=== PATIENT | male | born 1965 | race Caucasian/White ===

== ENCOUNTER 2018-08-09 15:32 | Inpatient (IN) | payer MEDICAID ==
[~2018-08-09] VITALS: Ht 175.3 cm; Wt 88.5 kg
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
[2018-08-09 16:00] LABS: BASOPHILS % (AUTO) 0.4 % (0.0-2.0); EOSINOPHILS % (AUTO) 0.1 % (0.0-6.0); HEMATOCRIT 43 % (39-51); LYMPHOCYTES # (AUTO) 0.5 /CMM (0.8-4.8); LYMPHOCYTES % (AUTO) 6.3 % (20.0-44.0); MEAN CORPUSCULAR HGB CONC 35 g/dl (31.0-36.0); MEAN CORPUSCULAR VOLUME 98 fL (80-96); MONOCYTES # (AUTO) 0.7 /CMM (0.1-1.30); MONOCYTES % (AUTO) 8.8 % (2.0-12.0); NEUTROPHILS % (AUTO) 84.4 % (43.0-81.0); PLATELET COUNT (AUTO) 242 /CMM (150-450); RED BLOOD CELL COUNT(AUTO) 4.37 MIL/uL (4.5-6.0); WHITE BLOOD COUNT (AUTO) 8.3 K/uL (4.3-11.0)
[2018-08-09 16:06] LABS: CALCIUM, SERUM 9.2 mg/dL (8.5-10.1); CARBON DIOXIDE 22 mmol/L (21-32); CHLORIDE 93 mmol/L (98-107); CREATININE 1.1 mg/dL (0.6-1.3); GLUCOSE 172 mg/dL (74-106); POTASSIUM 3.7 mmol/L (3.5-5.1); SODIUM SERUM 131 mmol/L (136-145); UREA NITROGEN, BLOOD 4 mg/dL (7-18)
[2018-08-09 16:19] LABS: ALANINE AMINOTRANSFERASE 144 U/L (12-78); ALKALINE PHOSPHATASE 90 U/L (46-116); ASPARTATE AMINOTRANSFERASE 126 U/L (15-37); B-TYPE NATRIURETIC PEPTIDE 292 PG/ML (0-125); BILIRUBIN,DIRECT 0.2 mg/dL (0.0-0.2); BILIRUBIN,TOTAL 1.2 mg/dL (0.2-1.0); TOTAL PROTEIN, SERUM 8.4 g/dL (6.4-8.2)
--- NOTE | 2018-08-09 17:00 | NUR ---
PATIENT IN BED, NAD, BP ELEVATED, MD AWARE. PATIENT ASYMPTOMATIC. NO DISTRESS NOTED. WILL MONITOR.
[2018-08-09 17:05] LABS: D-DIMER 2.02 mg/L(FEU (0.17-0.50)
[2018-08-09] MEDS ORDERED: LOSA50TA39 PO (17:54)
[2018-08-09] MEDS ORDERED: SERT25TA PO (17:54)
[2018-08-09] MEDS ORDERED: FOLI1TAB16 PO (17:54)
[2018-08-09] MEDS ORDERED: LORA0.5T PO (17:54)
[2018-08-09] MEDS ORDERED: AMLO5TAB9 PO (17:54)
[2018-08-09] MEDS ORDERED: CT SWABBABLE VALVE TRANS SET 1 EA INFUS.SET MC ONE (17:59)
[2018-08-09] MEDS ORDERED: IV NS 0.9% 250 ML IV ONE (17:59)
[2018-08-09] MEDS ORDERED: IOHEXOL-350 100 ML VIAL IV ONE (17:59)
--- NOTE | 2018-08-09 19:21 | NUR ---
REPORT GIVEN TO CAROLYN RODRIGUEZ FOR CLARK.
--- NOTE | 2018-08-09 19:23 | NUR ---
REC'D ENDORSEMENT FROM MICHAEL BANUELOS FOR CLARK
--- NOTE | 2018-08-09 19:45 | NUR ---
PT AWAKE IN BED. NO COMPLAINTS AT THIS TIME. WAITING FOR AUTHORIZATION. WILL CONT TO MONITOR.
--- NOTE | 2018-08-09 19:57 | NUR ---
Matthew schwab in [facility] - 08/09/18 at 2017 by ELIANA URINE SENT TO LAB
[2018-08-09] MEDS ORDERED: ASPIRIN 325 MG TABLET PO ONE (20:00)
[2018-08-09] MEDS ORDERED: NITROGLYCERIN PACKET 1 GM PACKET TOP ONE (20:00)
[2018-08-09] MEDS ORDERED: ASPIRIN 325 MG TABLET ONE (20:12)
[2018-08-09] MEDS ORDERED: NITROGLYCERIN PACKET 1 GM PACKET ONE (20:12)
--- NOTE | 2018-08-09 20:37 | NUR ---
PT ASSIGNED TO 312-2
--- NOTE | 2018-08-09 21:31 | NUR ---
REPORT GIVEN TO MICHAEL STEVENSON FOR 327-1 TELE
--- NOTE | 2018-08-09 21:58 | NUR ---
[facility]
[2018-08-09 22:00] VITALS: BP 161/108
[2018-08-09] MEDS ORDERED: MAG HYDROX/AL HYDROX/SIMETH 30 ML UDC PO PRN (22:00)
[2018-08-09] MEDS ORDERED: ACETAMINOPHEN 325 MG TABLET PO PRN (22:00)
[2018-08-09] MEDS ORDERED: LORAZEPAM 0.5 MG TABLET PO PRN (22:00)
[2018-08-09] MEDS ORDERED: MAGNESIUM HYDROXIDE 30 ML UDC PO PRN (22:00)
[2018-08-09] MEDS ORDERED: ONDANSETRON HCL/PF 4 MG/2 ML VIAL IVP PRN (22:00)
[2018-08-09] MEDS ORDERED: ZOLPIDEM TARTRATE 5 MG TABLET PO PRN (22:00)
[2018-08-09] MEDS ORDERED: Z GUARD REMEDY 2 OZ OINT TP PRN (22:00)
--- NOTE | 2018-08-09 22:01 | NUR ---
RN ADMITTING NOTES RECEIVED REPORT FROM CHILDREN'S MINISTRY DIRECTOR SUNG. Pt ARRIVED TO THE FLOOR VIA GURNEY. WAS TOO WEAK TO WALK TO BED, STAFF ASSISTED Pt FROM GURNEY TO ROOM BED. ON TELE MONITOR. TELE READING SR 88. 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 IV ACCESS ON RAC #18G, SL. SAFETY MEASURES IN PLACE. BED LOW, LOCKED, HOB ELEVATED, SIDE RAILS UP, CALL LIGHT AND BEDSIDE TABLE WITHIN REACH. WILL CONTINUE TO MONITOR Pt's CONDITION AND SAFETY THROUGHOUT THE NIGHT.
[2018-08-10] VITALS: BP 125/69
[2018-08-10] MEDS: HYDROCODONE/APAP 5/325MG 1 EACH TABLET PO PRN ×2 (00:13→16:47)
[2018-08-10] MEDS: hydrALAZINE HCL IV 20 MG VIAL IV PRN (00:26)
[2018-08-10 04:00] VITALS: BP 134/84
[2018-08-10 06:40] LABS: BASOPHILS % (AUTO) 0.2 % (0.0-2.0); EOSINOPHILS % (AUTO) 0.5 % (0.0-6.0); HEMATOCRIT 41 % (39-51); HEMOGLOBIN 14.4 g/dL (13.5-17.5); LYMPHOCYTES # (AUTO) 0.8 /CMM (0.8-4.8); LYMPHOCYTES % (AUTO) 10.3 % (20.0-44.0); MEAN CORPUSCULAR HGB CONC 35 g/dl (31.0-36.0); MEAN CORPUSCULAR VOLUME 96 fL (80-96); MONOCYTES # (AUTO) 0.8 /CMM (0.1-1.30); MONOCYTES % (AUTO) 10.6 % (2.0-12.0); NEUTROPHILS # (AUTO) 6.1 /CMM (1.8-8.9); NEUTROPHILS % (AUTO) 78.4 % (43.0-81.0); PLATELET COUNT (AUTO) 193 /CMM (150-450); RED BLOOD CELL COUNT(AUTO) 4.25 MIL/uL (4.5-6.0); WHITE BLOOD COUNT (AUTO) 7.8 K/uL (4.3-11.0)
--- NOTE | 2018-08-10 06:45 | NUR ---
RN CLOSING NOTES NO SIGNIFICANT CHANGES IN Pt's CONDITION. Pt REMAINS STABLE AT THIS TIME. NO S/S OF ACUTE DISTRESS OR SOB NOTED DURING THE NIGHT. TELE READING SR 90. ALL NEEDS MET AND ATTENDED TO. SAFETY MEASURES IN PLACE. BED LOW, LOCKED, HOB ELEVATED, SIDE RAILS UP, CALL LIGHT AND BEDSIDE TABLE WITHIN REACH. WILL ENDORSE TO DAYSHIFT RN FOR Pt's CLARK.
[2018-08-10 07:03] LABS: THYROID STIMULATING HORMONE 3.186 uIU/mL (0.358-3.74)
[2018-08-10 07:05] LABS: ALBUMIN 3.4 g/dL (3.4-5.0); BILIRUBIN,TOTAL 1.4 mg/dL (0.2-1.0); CALCIUM, SERUM 8.8 mg/dL (8.5-10.1); CREATININE 0.6 mg/dL (0.6-1.3); MAGNESIUM 2.1 mg/dL (1.8-2.4); PHOSPHORUS 3.5 mg/dL (2.5-4.9); POTASSIUM 2.9 mmol/L (3.5-5.1); TOTAL PROTEIN, SERUM 7.3 g/dL (6.4-8.2)
[2018-08-10] MEDS: PANTOPRAZOLE 40 MG TABLET.DR PO SCH (07:30)
[2018-08-10 07:41] LABS: APPEARANCE,URINE CLEAR (CLEAR); BILIRUBIN,URINE NEGATIVE (NEGATIVE); BLOOD, URINE NEGATIVE Ery/uL (NEGATIVE); COLOR,URINE DARK YELLO (YELLOW); KETONES,URINE 1+ (NEGATIVE); LEUKOCYTE ESTERASE ,URINE NEGATIVE (NEGATIVE); NITRITE, URINE NEGATIVE (NEGATIVE); PROTEIN,URINE NEGATIVE (NEGATIVE); UGLUCOSE NEGATIVE (NEGATIVE); UROBILINOGEN,URINE >=8.0 EU/dL (0.2)
--- NOTE | 2018-08-10 07:59 | NUR ---
TELE/RN OPENING NOTE PATIENT IN BED IN STABLE CONDITION. A/O X 2-3 WITH EPISODES OF FORGETFULNESS. NO SIGNS OF ACUTE DISTRESS. NO COMPLAIN OF PAIN OR DISCOMFORT. ON TELE MONITOR NOTED WITH SR IN 90'S. NOTED WITH SWOLLEN TONGUE AT THIS TIME AND PATIENT COMPLAIN OF DIFFICULTY TALKING SECONDARY TO SWOLLEN TONGUE. PER PATIENT, BEFORE COMING TO ER PATIENT WAS HAVING SEIZURES AND HE BIT HIS TONGUE. AT THIS TIME KEPT PATIENT NPO TFO. DR. VENTURA NOTIFIED. CALL LIGHT WITHIN REACH. WILL CONTINUE TO MONITOR TO ENSURE SAFETY.
[2018-08-10 08:00] VITALS: BP 146/94
[2018-08-10] MEDS ORDERED: diphenhydrAMINE HCL 50 MG CAPSULE PO PRN (08:30)
[2018-08-10] MEDS: methylPREDNISolone SOD SUCC 125 MG/2ML VIAL IV SCH ×3 (08:49→16:47)
[2018-08-10] MEDS ORDERED: AMLODIPINE BESYLATE 5 MG TABLET PO SCH (09:00)
[2018-08-10] MEDS: AMLODIPINE BESYLATE 10 MG TABLET PO SCH (09:00)
[2018-08-10] MEDS ORDERED: LOSARTAN POTASSIUM 50 MG TABLET PO SCH (09:00)
[2018-08-10] MEDS: ASPIRIN EC 81 MG TABLET.DR PO SCH (09:00)
[2018-08-10] MEDS ORDERED: FOLIC ACID 1 MG TABLET PO SCH (09:00)
[2018-08-10] MEDS: SERTRALINE HCL 25 MG TABLET PO SCH (09:00)
[2018-08-10] MEDS: METOPROLOL TARTRATE 25 MG TABLET PO SCH ×2 (09:00→21:33)
[2018-08-10] MEDS: POTASSIUM CHLORIDE 20 MEQ TAB.PRT.SR PO SCH ×2 (09:00→10:00)
--- NOTE | 2018-08-10 09:00 | NUR ---
MS/RN ALL 9AM PO MEDS AND BREAKFAST HELD SECONDARY TO PATIENT HAVING POSSIBLE ALLERGIC REACTION. PATIENT TONGUE NOTED SWOLLEN AND PER PATIENT HAVING DIFFICULTY SWALLOWING AT THIS TIME. DR VENTURA NOTIFIED WITH ORDERS TO GIVE SOLUMEDROL IVP AND BENADRYL IVP. DENIES OF ANY SOB AT THIS TIME. WILL CONTINUE TO MONITOR TO ENSURE SAFETY.
[2018-08-10] MEDS: Magnesium 1GM/D5W 100ML PREMIX 100 ML IV SCH ×2 (09:01→10:17)
[2018-08-10] MEDS: diphenhydrAMINE HCL 50 MG/ML VIAL IV PRN (09:01)
[2018-08-10 10:11] LABS: BACTERIA,URINE None seen /HPF (None Seen); RBC,URINE NONE SEEN /HPF (0-2); SQUAMOUS EPITHELIAL CELL,UR Rare /HPF (None Seen); WBC,URINE 0-2 /HPF (0-3)
[2018-08-10] MEDS: POTASSIUM CL. PREMIX PERIPHER. 50 ML IV SCH ×5 (11:37→15:49)
--- NOTE | 2018-08-10 11:45 | NUR ---
MS/RN PATIENT'S TONGUE SWELLING NOTED TO BE REDUCED AND PER PATIENT HE IS ABLE TO SWALLOW BETTER, PREFERABLY COLD FLUIDS. YARA BEAL NOTIFIED.
[2018-08-10] MEDS ORDERED: Thiamine 100 MG in IV D5W 50 ML IV SCH (12:00)
[2018-08-10] MEDS ORDERED: Folic acid 1 MG in IV D5W 50 ML IV SCH (12:00)
[2018-08-10] MEDS: LORAZEPAM INJ 2 MG/ML VIAL IV PRN ×2 (12:41→21:42)
[2018-08-10 16:00] VITALS: BP 155/110
--- NOTE | 2018-08-10 18:09 | NUR ---
MS/RN CLOSING NOTE PATIENT IN BED IN STABLE CONDITION. A/O X 3. NO SIGNS OF ACUTE DISTRESS. NO COMPLAIN OF PAIN OR DISCOMFORT. ALL NEEDS ATTENDED TO. CALL LIGHT WITHIN REACH. WILL ENDORSE TO NEXT SHIFT FOR CONTINUITY OF CARE.
--- NOTE | 2018-08-10 19:47 | NUR ---
OPENING NOTES: RANIVE ABOUT HIMSELF SMILING TALKING ABOUT HIS STONER AND HEALTH. PLEASENT AND SMILING CALL LIGHT WITHIN HIS REACH PADDED SIDE RAILS SPEECH UNDERSTANDABLE
[2018-08-10 20:00] VITALS: BP 157/96
[2018-08-10] MEDS: ATORVASTATIN 10 MG TABLET PO SCH (21:34)
--- NOTE | 2018-08-11 05:21 | NUR ---
ENDING NOTES: UP AND ABOUT USING A WALKERS. STEADY ON HIS LEGS ALERT AND ORIENTATED. ENJOYS CONVERSATION. SPEECH UNDERSTANDABLE. NOTED TONGUE MAROON IN COLOR AND SWOLLEN. HE HAS NO PROBLEM SWALLOWING OR BREATHING . AUDIBLE SNORING NOTED WHEN ASLEEP. SATS ABOVE 92%. ATIVAN X1 GIVEN AND EFFECTIVE FOR HIS ANXIETY. VERBALIZES HIS NEEDS.
[2018-08-11] MEDS: LORAZEPAM INJ 2 MG/ML VIAL IV PRN ×2 (06:29→16:48)
[2018-08-11 07:05] LABS: CALCIUM, SERUM 8.8 mg/dL (8.5-10.1); CREATININE 0.6 mg/dL (0.6-1.3); MAGNESIUM 2.2 mg/dL (1.8-2.4); PHOSPHORUS 3.4 mg/dL (2.5-4.9); POTASSIUM 4.1 mmol/L (3.5-5.1)
--- NOTE | 2018-08-11 07:14 | NUR ---
TRANSFER OF CARE RECEIVED PT VIA W/C TRANSFER TO 209-1 ALL BELONGINGS WITH PT, STABLE KEPT COMFORTABLE ENDORSE TO AM NURSE POC
[2018-08-11] MEDS: PANTOPRAZOLE 40 MG TABLET.DR PO SCH (07:30)
--- NOTE | 2018-08-11 07:40 | NUR ---
RN OPENING NOTE PT WAS RECEIVED IN BED AT LOWEST AND LOCKED POSITION WITH SIDE RAILS UP X2, A/O X3 BREATHING EVEN AND UNLABORED ON RA, NO S/S OF ANY DISTRESS OR PAIN AT THIS TIME, IV IS PATENT AND INTACT, SAFETY PRECAUTIONS IN PLACE, CALL LIGHT WITHIN REACH, WILL MONITOR PT ACCORDINGLY
[2018-08-11 08:00] VITALS: BP 147/94
[2018-08-11] MEDS: methylPREDNISolone SOD SUCC 125 MG/2ML VIAL IV SCH ×3 (08:00→16:00)
[2018-08-11] MEDS: diphenhydrAMINE HCL 50 MG/ML VIAL IV PRN ×3 (08:01→21:02)
[2018-08-11] MEDS: THIAMINE HCL 100 MG TABLET PO SCH (09:00)
[2018-08-11] MEDS: METOPROLOL TARTRATE 25 MG TABLET PO SCH ×2 (09:00→21:01)
[2018-08-11] MEDS: FOLIC ACID 1 MG TABLET PO SCH (09:00)
[2018-08-11] MEDS: SERTRALINE HCL 25 MG TABLET PO SCH (09:00)
[2018-08-11] MEDS: AMLODIPINE BESYLATE 10 MG TABLET PO SCH (09:00)
[2018-08-11] MEDS: ASPIRIN EC 81 MG TABLET.DR PO SCH (09:00)
--- NOTE | 2018-08-11 09:00 | NUR ---
RN NOTE AM PO MEDS HELD DUE TO PATIENT HAVING SWOLLEN TONGUE, EMIGDIO QC SCIENTIST NOTIFIED AND MADE AWARE, IV BENADRYL AND IV SOLUMEDROL GIVEN. WILL MONITOR ACCORDINGLY.
--- NOTE | 2018-08-11 09:18 | NUR ---
RN NOTE EMIGDIO LIVINGSTON MADE AWARE OF PT NOT BEING ABLE TO TAKE PO PAIN MEDICATION, REQUESTED IV PAIN MEDICATION AND IV MORPHINE 2 MG Q6H PRN ORDERED, WILL IMPLEMENT AND CARRY OUT.
[2018-08-11] MEDS: MORPHINE SULFATE INJ 2 MG/ML DISP.SYRIN IV PRN ×2 (09:23→15:56)
[2018-08-11 16:00] VITALS: BP 161/105
[2018-08-11] MEDS: FAMOTIDINE/PF INJ 20 MG/2 ML VIAL IV SCH (16:48)
[2018-08-11] MEDS: hydrALAZINE HCL IV 20 MG VIAL IV PRN (16:48)
--- NOTE | 2018-08-11 18:11 | NUR ---
RN CLOSING NOTE PT IN BED AT LOWEST AND LOCKED POSITION WITH SIDE RAILS UP X2, A/O X3 BREATHING EVEN AND UNLABORED ON RA, NO S/S OF ANY DISTRESS OR PAIN AT THIS TIME, IV IS PATENT AND INTACT, TONGUE NOTED TO BE SWOLLEN STILL WITH HOSPITALIST AWARE, SAFETY PRECAUTIONS IN PLACE, CALL LIGHT WITHIN REACH, ALL NEEDS ATTENDED TO, WILL ENDORSE TO BEEF CATTLE SPECIALIST RN FOR CLARK.
[2018-08-11 18:38] LABS: BASOPHILS % (AUTO) 0.1 % (0.0-2.0); EOSINOPHILS % (AUTO) 0.2 % (0.0-6.0); HEMATOCRIT 41 % (39-51); HEMOGLOBIN 14.4 g/dL (13.5-17.5); LYMPHOCYTES # (AUTO) 0.2 /CMM (0.8-4.8); LYMPHOCYTES % (AUTO) 1.8 % (20.0-44.0); MEAN CORPUSCULAR HGB CONC 35 g/dl (31.0-36.0); MEAN CORPUSCULAR VOLUME 97 fL (80-96); MONOCYTES # (AUTO) 0.1 /CMM (0.1-1.30); MONOCYTES % (AUTO) 1.3 % (2.0-12.0); NEUTROPHILS # (AUTO) 9.2 /CMM (1.8-8.9); NEUTROPHILS % (AUTO) 96.6 % (43.0-81.0); PLATELET COUNT (AUTO) 188 /CMM (150-450); RED BLOOD CELL COUNT(AUTO) 4.29 MIL/uL (4.5-6.0); WHITE BLOOD COUNT (AUTO) 9.5 K/uL (4.3-11.0)
--- NOTE | 2018-08-11 19:10 | NUR ---
MS RN OPENING NOTES Received patient A/O x3, awake on semi-Pacheco's on bed. With patent peripheral IV line RFA G#18, no s/sx of infiltration noted. With tongue swollen, purple in color with whitish spots under the tongue noted. On RA, no SOB/respiratory distress noted. No complaints/discomfort at this time. Kept bed low and locked, siderail up, call light within easy reach. Will continue to monitor accordingly.
[2018-08-11 19:53] VITALS: BP 148/101
[2018-08-11 20:00] VITALS: BP 148/101
[2018-08-11] MEDS: ATORVASTATIN 10 MG TABLET PO SCH (21:02)
[2018-08-12] VITALS (7 sets, daily range): BP systolic 147–165; BP diastolic 83–99
[2018-08-12] MEDS: diphenhydrAMINE HCL 50 MG/ML VIAL IV PRN ×2 (04:30→20:33)
[2018-08-12] MEDS: LORAZEPAM INJ 2 MG/ML VIAL IV PRN ×3 (04:30→19:49)
[2018-08-12 06:23] LABS: BASOPHILS % (AUTO) 0.2 % (0.0-2.0); HEMATOCRIT 41 % (39-51); HEMOGLOBIN 14.3 g/dL (13.5-17.5); LYMPHOCYTES # (AUTO) 0.8 /CMM (0.8-4.8); LYMPHOCYTES % (AUTO) 9.1 % (20.0-44.0); MEAN CORPUSCULAR HGB CONC 35 g/dl (31.0-36.0); MEAN CORPUSCULAR VOLUME 97 fL (80-96); MONOCYTES % (AUTO) 11.2 % (2.0-12.0); NEUTROPHILS % (AUTO) 79.5 % (43.0-81.0); PLATELET COUNT (AUTO) 193 /CMM (150-450); RED BLOOD CELL COUNT(AUTO) 4.24 MIL/uL (4.5-6.0); WHITE BLOOD COUNT (AUTO) 8.8 K/uL (4.3-11.0)
[2018-08-12 06:40] LABS: CREATININE 0.7 mg/dL (0.6-1.3); MAGNESIUM 2.2 mg/dL (1.8-2.4); PHOSPHORUS 3.4 mg/dL (2.5-4.9); POTASSIUM 3.4 mmol/L (3.5-5.1)
--- NOTE | 2018-08-12 06:47 | NUR ---
MS RN CLOSING NOTES Patient asleep at this time, on RA, no SOB/respiratory distress noted. With patent peripheral IV line LFA G#18, no s/sx of infiltration noted. All nursing needs attended. Due meds given as ordered. Afebrile the whole shift, no episode of chest pain or seizures noted. On fall precautions. Call light within easy reach. Endorsed to the next shift.
--- NOTE | 2018-08-12 07:45 | NUR ---
MS/RN Patient received Patient received from plant operator/shift supervisor, sleeping soundly at this time. Safety measures in place, will continue to monitor and ensure safety.
[2018-08-12] MEDS: methylPREDNISolone SOD SUCC 125 MG/2ML VIAL IV SCH ×3 (08:07→16:21)
[2018-08-12] MEDS: PANTOPRAZOLE 40 MG TABLET.DR PO SCH (08:08)
[2018-08-12] MEDS: SERTRALINE HCL 25 MG TABLET PO SCH (08:08)
[2018-08-12] MEDS: THIAMINE HCL 100 MG TABLET PO SCH (08:08)
[2018-08-12] MEDS: METOPROLOL TARTRATE 25 MG TABLET PO SCH ×2 (08:08→20:29)
[2018-08-12] MEDS: FAMOTIDINE/PF INJ 20 MG/2 ML VIAL IV SCH ×2 (08:08→20:01)
[2018-08-12] MEDS: FOLIC ACID 1 MG TABLET PO SCH (08:08)
[2018-08-12] MEDS: ASPIRIN EC 81 MG TABLET.DR PO SCH (08:08)
[2018-08-12] MEDS: AMLODIPINE BESYLATE 10 MG TABLET PO SCH (08:08)
--- NOTE | 2018-08-12 09:15 | NUR ---
MS/RN Medications Patient able to swallow oral medications.
[2018-08-12] MEDS ORDERED: POTASSIUM CHLORIDE 20 MEQ TAB.PRT.SR PO SCH (09:30)
--- NOTE | 2018-08-12 10:15 | NUR ---
MS/RN S/B Speech therapist Seen by speech therapist - diet to be advanced to puree diet.
[2018-08-12] MEDS: MORPHINE SULFATE INJ 2 MG/ML DISP.SYRIN IV PRN ×2 (11:08→20:01)
--- NOTE | 2018-08-12 11:15 | NUR ---
MS/RN Pain Complaining of pain and feeling anxious, requesting something to "calm me down and take away the pain". Stated that pain is 8/10 and located to soles of both feet and to his neck due to the edema from the allergic reaction from previous medication. Ativan and morphine administered as ordered, will monitor effectiveness.
--- NOTE | 2018-08-12 11:29 | NUR ---
Social service consult requested by YARA Yang for homelessness. Pt. is a 53 year old male who was admitted to [facility] for altered mental status. HEBER met with pt. bedside. Pt. is alert and oriented x 4. Pt. is pleasant and cooperative with SW during the assessment. Pt. states he is currently homeless and has been living in his car since 03/11/18. Prior to being homeless, pt. was living in a house. Pt's emergency contact is his brother Jai Rendon and his son Javon . Pt. is currently linked to the ACCESS program at [facility]. Per pt's permission, SW contacted [facility] and spoke with caser up Any who confirmed with SW that pt. is linked to their ACCESS program and [place]. [place] [facility] [place]. SW offered pt. fdc placement, however pt. declined stating he will go back to [facility]. Pt. has a history of Depression and Anxiety and takes Ativan and Zoloft medication daily. Pt. denies any suicidal and homicidal ideations and visual/auditory hallucinations at this time. HEBER. informed pt. about [facility] [facility] since pt. lives in his car. Pt. states he is familiar with it. HEBER informed pt. she can initiate a referral packet to the [facility] [facility] program. Pt. agreed. HEBER contacted [employer] and spoke with Avinash and initiated the referral application. Avinash informed SW he will contact the pt. regarding his vehicle information etc. HEBER updated the pt. with the aforementioned information. SW to offer pt. homeless resources prior to discharge. Homeless patient waiver form to be signed by the pt. upon discharge.
[2018-08-12] MEDS: hydrALAZINE HCL IV 20 MG VIAL IV PRN (16:21)
--- NOTE | 2018-08-12 16:30 | NUR ---
MS/RN Hypertension Hypertensive at 160/ 94, hydralazine 10mg administered as ordered, will monitor patient and recheck blood pressure.
--- NOTE | 2018-08-12 18:26 | NUR ---
MS/RN End note Patient remains in stable condition, no further edema noted, continues to complain of difficulty in swallowing, but denies any shortness of breath, saturation on room air 98%. Blood pressure recheck at 1800, now 147/83. All needs addressed, will endorse to steam plant operator.
--- NOTE | 2018-08-12 19:20 | NUR ---
MS RN OPENING NOTES: RECEIVED PT ON ROOM AIR AND IS TOLERATING WELL. PT VERBALIZING THAT HIS TONGUE HAS BEEN SWOLLEN SINCE LAST NIGHT. NOTED WHITE SPOTS UNDER TONGUE AND TONGUE APPEARS TO BE PURPLE. NO SOB NOTED. NO S/S OF DISTRESS. PT ABLE TO MAKE NEEDS KNOWN. ASSESSED FOR SWALLOWING AND NO COUGHING OR DROOLING NOTED. PT HAS IV ON L FOREARM #18G AND IS PATENT AND INTACT. CURRENTLY H/L. BED KEPT IN LOW, LOCKED POSITION, AND SIDE RAILS X 2UP. WILL CONTINUE TO MONITOR PT.
--- NOTE | 2018-08-12 20:15 | NUR ---
MS RN NOTES: PT FEELING VERY ANXIOUS AND IS IN 8/10 THROAT, ANKLES, AND FEET PAIN. PT WAS ADMINISTERED ATIVAN AND MORPHINE IV. WILL CONTINUE TO MONITOR.
[2018-08-12] MEDS: ATORVASTATIN 10 MG TABLET PO SCH (21:04)
[2018-08-13 05:40] VITALS: BP 161/97
[2018-08-13] MEDS: MORPHINE SULFATE INJ 2 MG/ML DISP.SYRIN IV PRN (05:43)
--- NOTE | 2018-08-13 05:45 | NUR ---
MS RN NOTES: PT WOKE UP SAYING HIS THROAT STILL FEELS SWOLLEN AND HIS BILATERAL FEET ARE ACHY 8/10 PAIN. PT WAS ADMINISTERED MORPHINE 2MG IV. WILL CONTINUE TO MONITOR.
[2018-08-13 06:19] VITALS: BP 110/66
[2018-08-13] MEDS: LORAZEPAM INJ 2 MG/ML VIAL IV PRN (06:22)
--- NOTE | 2018-08-13 06:28 | NUR ---
MS RN NOTES: PT WAKING UP AND SAYING HE IS FEELING VERY ANXIOUS. PT WAS ADMINISTERED ATIVAN 2MG IV. WILL CONTINUE TO MONITOR.
[2018-08-13 06:29] LABS: CALCIUM, SERUM 8.9 mg/dL (8.5-10.1); CREATININE 0.6 mg/dL (0.6-1.3); POTASSIUM 3.3 mmol/L (3.5-5.1)
--- NOTE | 2018-08-13 06:50 | NUR ---
MS RN CLOSING NOTES: ALL NEEDS WERE ATTENDED AND ANTICIPATED FOR. PT KEPT DRY AND COMFORTABLE. PT ON ROOM AIR AND TOLERATING WELL. NO SOB NOTED. NO S/S OF DISTRESS. PT HAS IV AND REMAINS INTACT. PT'S TONGUE SWELLING APPEARS TO GO DOWN. BED KEPT IN LOW, LOCKED POSITION, AND SIDE RAILS X 2UP. WILL ENDORSE TO AM NURSE FOR CLARK.
--- NOTE | 2018-08-13 07:30 | NUR ---
MS/RN Patient received Patient received from research engineer marine equipment. No shortness of breath or difficulty breathing, saturation on room air 98%. Tongue appears less swollen that yesterday evening. Safety measures in place, aware of how to use call light and request assistance. Will continue to monitor and ensure safety.
[2018-08-13 08:00] VITALS: BP_SYST 109; BP_SYST 122; BP_DIAS 68; BP_DIAS 73
[2018-08-13] MEDS: FAMOTIDINE/PF INJ 20 MG/2 ML VIAL IV SCH (08:06)
[2018-08-13] MEDS: PANTOPRAZOLE 40 MG TABLET.DR PO SCH (08:06)
[2018-08-13] MEDS: ASPIRIN EC 81 MG TABLET.DR PO SCH (08:06)
[2018-08-13] MEDS: FOLIC ACID 1 MG TABLET PO SCH (08:06)
[2018-08-13] MEDS: SERTRALINE HCL 25 MG TABLET PO SCH (08:06)
[2018-08-13] MEDS: THIAMINE HCL 100 MG TABLET PO SCH (08:06)
[2018-08-13] MEDS: methylPREDNISolone SOD SUCC 125 MG/2ML VIAL IV SCH ×2 (08:06→13:20)
[2018-08-13 08:07] VITALS: BP 165/96
[2018-08-13] MEDS: METOPROLOL TARTRATE 25 MG TABLET PO SCH (08:07)
[2018-08-13] MEDS: AMLODIPINE BESYLATE 10 MG TABLET PO SCH (08:07)
--- NOTE | 2018-08-13 08:19 | NUR ---
MS/RN Medications Morning medications administered, no difficulty swallowing pills.
[2018-08-13] MEDS ORDERED: POTASSIUM CHLORIDE 20 MEQ TAB.PRT.SR PO SCH (10:30)
--- NOTE | 2018-08-13 11:30 | NUR ---
MS/RN S/B Dr Vogel Seen by Dr Vogel - patient to be discharged to home today.
[2018-08-13] MEDS ORDERED: Thiamine HCL PO (12:55)
[2018-08-13] MEDS ORDERED: FOLI1TAB16 PO (12:55)
--- NOTE | 2018-08-13 14:57 | NUR ---
SW received a call from pt's MICHAEL Pedraza informing SW that pt. will be discharging today. HEBER and MICHAEL Pedraza met with pt. bedside. Pt. declined senior living placement and wants to meat pickler his car from [facility] located at [address] [facility] [place] [address]. Pt. was given the following resources: [facility] located at [address] [facility], [place] ; [facility] [place], [address] [place] [address], [place] ; [employer] [employer] [facility] [place], [address] [facility] [facility] ; [facility] Homeless Resource Directory which includes food stamps, transitional housing, showers and hot meals etc; Mental Health clinics such as [facility] ; [facility] ; Health clinics;[facility] and Alcohol treatment centers such as [facility], ; [facility] Substance Abuse Hotline and [facility] . Patient was provided with a TAP card. Homeless patient Waiver Form was signed by the pt. and placed in pt's chart. No other social service needs are requested at this time. SW is available, if needed.
--- NOTE | 2018-08-13 15:23 | NUR ---
MS/crib clerk Patient discharged from hospital in stable condition. TAP card provided to enable patient to get to the location of his car in the parking lot of [facility] on [address]. Stated that he was going to go to his car and then drive himself to [facility] where he has previously helped to find placement/short term housing. Name bands removed along with heplock. Pressure dresser applied, catheter tip intact. Patient seen by transition social worker prior to discharge and provided with resources and longterm locations. Educated about the importance of calling 911 and returning to the emergency room if noticing that tongue has become more swollen or experiencing shortness of breath and difficulty breathing. Stated understanding of the above. Stated that he would also follow up with his primary care doctor. All paperwork signed, copies made and provided to patient. Homeless waiver signed and placed in front of chart. Escorted to main lobby by MALICK.
== END 2018-08-13 15:15 | disposition home or self-care (01) | DRG 53 ==
LOC: ER 15:34 → TELE 21:28 → MED 08-10 09:25 → MEDSG2 08-11 06:50
PROVIDERS: ADMIT Hospitalist
DX: G40.89 Other seizures (principal); G92 Toxic encephalopathy; I11.0 Hypertensive heart disease with heart failure; E87.1 Hypo-osmolality and hyponatremia; I50.32 Chronic diastolic (congestive) heart failure; F10.239 Alcohol dependence with withdrawal, unspecified; I16.0 Hypertensive urgency; E66.9 Obesity, unspecified; E87.6 Hypokalemia; F12.90 Cannabis use, unspecified, uncomplicated; F41.9 Anxiety disorder, unspecified; R74.0 Nonspecific elevation of levels of transaminase and lactic acid dehydrogenase [LDH]; T78.3XXA Angioneurotic edema, initial encounter; Z59.0 Homelessness; Y90.0 Blood alcohol level of less than 20 mg/100 ml; R07.89 Other chest pain; Z68.28 Body mass index [BMI] 28.0-28.9, adult
CPT/HCPCS: 36415; 70450-TC; 71045-TC; 80048-TC; 80053-TC; 80061-TC; 80076-TC; 80305; 81000-TC; 83735-TC; 83880; 84100-TC; 84443-TC; 84484-TC; 85025-TC; 85378-TC; 85730-TC; 86850-TC; 87081-TC; 92526; 92611-TC; 93307-TC; 93970-TC; 97116-TC; 97530-TC; G0378; G0480; J0360; J1200; J2060; J2270; J2930; J3411; J3475; J3480; J3490; J7050; J7060; Q9967

== ENCOUNTER 2018-10-07 09:33 | Emergency (ER) | payer MEDICAID ==
[~2018-10-07] VITALS: Ht 162.6 cm; Wt 95.7 kg
[~2018-10-07 09:33] MED LIST: AMLO5TAB9 PO; FOLI1TAB16 PO; LORA0.5T PO; LOSA50TA39 PO; SERT25TA PO; Thiamine HCL PO
--- NOTE | 2018-10-07 09:38 | NUR ---
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 ALERT AND ORIENTED X3. BREATHING EVEN AND UNLABORED. AWAITING TO BE SEEN BY
--- NOTE | 2018-10-07 09:50 | NUR ---
CLAIMS PROCESSOR AT BEDSIDE TO TAKE PATIENT FOR CT SCAN
[2018-10-07] MEDS ORDERED: IV NS 0.9% 1,000 ML BAG IV ONE (10:00)
[2018-10-07 10:02] LABS: BASOPHILS % (AUTO) 0.5 % (0.0-2.0); EOSINOPHILS % (AUTO) 0.6 % (0.0-6.0); HEMATOCRIT 38 % (39-51); HEMOGLOBIN 13.2 g/dL (13.5-17.5); LYMPHOCYTES # (AUTO) 0.6 /CMM (0.8-4.8); LYMPHOCYTES % (AUTO) 12.5 % (20.0-44.0); MEAN CORPUSCULAR HGB CONC 35 g/dl (31.0-36.0); MEAN CORPUSCULAR VOLUME 98 fL (80-96); MONOCYTES # (AUTO) 0.6 /CMM (0.1-1.30); NEUTROPHILS # (AUTO) 3.3 /CMM (1.8-8.9); NEUTROPHILS % (AUTO) 73.4 % (43.0-81.0); PLATELET COUNT (AUTO) 225 /CMM (150-450); RED BLOOD CELL COUNT(AUTO) 3.89 MIL/uL (4.5-6.0); WHITE BLOOD COUNT (AUTO) 4.4 K/uL (4.3-11.0)
[2018-10-07 10:04] LABS: CALCIUM, SERUM 8.6 mg/dL (8.5-10.1); CARBON DIOXIDE 26 mmol/L (21-32); CHLORIDE 95 mmol/L (98-107); CREATININE 0.7 mg/dL (0.6-1.3); GLUCOSE 112 mg/dL (74-106); POTASSIUM 3.3 mmol/L (3.5-5.1); SODIUM SERUM 132 mmol/L (136-145); UREA NITROGEN, BLOOD 3 mg/dL (7-18)
[2018-10-07] MEDS ORDERED: LORAZEPAM 1 MG TABLET PO ONE ×3 (10:30→22:30)
[2018-10-07] MEDS ORDERED: LORAZEPAM 0.5 MG TABLET ONE (10:36)
--- NOTE | 2018-10-07 10:45 | NUR ---
ART AT BEDSIDE
--- NOTE | 2018-10-07 16:23 | NUR ---
CALLED FOR FOOD TRAY
--- NOTE | 2018-10-07 16:34 | NUR ---
PATIENT WAS ABLE TO AMBULATE TO RESTROOM WITH WALKER. PATEINT STATED HE HAS A BM X1
--- NOTE | 2018-10-07 16:58 | NUR ---
DINNER AT BEDSIDE
--- NOTE | 2018-10-07 17:00 | NUR ---
PER CRISIS TEAM NOTES GORDO Patient given homeless, mental health and substance abuse resources. Patient will be transferred by ambulance to [facility] on a voluntary basis when accepted
--- NOTE | 2018-10-07 19:19 | NUR ---
PATIENT REMAINS STABLE THORUGHOUT SHIFT. NO DISTRESS NOTED. REPORT GIVEN TO ARJUN TO CONTINUE CONTINUITY OF CARE
[2018-10-07] MEDS ORDERED: AMLODIPINE BESYLATE 5 MG TABLET ONE (20:12)
[2018-10-07] MEDS ORDERED: AMLODIPINE BESYLATE 5 MG TABLET PO ONE (20:30)
[2018-10-07] MEDS ORDERED: POTASSIUM CHLORIDE 20 MEQ TAB.PRT.SR PO ONE ×2 (21:26→21:30)
--- NOTE | 2018-10-07 21:26 | NUR ---
PT ACC[facility]ED [facility]. # FOR REPORT [phone]
--- NOTE | 2018-10-07 21:26 | NUR ---
[facility]A FOR AMBULANCE 1 HR
[2018-10-07] MEDS ORDERED: LORAZEPAM 1 MG TABLET ONE (21:44)
--- NOTE | 2018-10-07 21:46 | NUR ---
REPORTED TO MD THAT BP IS STILL IN 160. PT NOTED ANXIOUS. ORDER RECEIVED TO GIVE ATIVAN 1MG POM X1
[2018-10-07 22:17] VITALS: BP 145/86
--- NOTE | 2018-10-07 22:20 | NUR ---
REPORT GIVEN TO MICHAEL COUGHLIN FOR CLARK. PT TO [facility].
--- NOTE | 2018-10-07 22:21 | NUR ---
Note josselin in EDM - 10/07/18 at 2222 by [facility] @ BEDSIDE FOR PT TRANSPORT TO [facility]. REPORT GIVEN. NO NOTED DISTRESS UPON REPAIRER WOOD FURNITURE. VSS. TRANSPORT ON [facility]
--- NOTE | 2018-10-07 22:22 | NUR ---
[facility] @ BED[facility]IDE [facility]. REPORT GIVEN. NO NOTED DISTRESS UPON APPLIANCE SERVICE TECHNICIAN. VSS. TRANSPORT ON [facility]
== END 2018-10-07 22:30 ==
LOC: ER 09:33
DX: R55 Syncope and collapse (principal); R45.851 Suicidal ideations; I10 Essential (primary) hypertension; F32.9 Major depressive disorder, single episode, unspecified; F41.9 Anxiety disorder, unspecified; Z60.2 Problems related to living alone; Z79.899 Other long term (current) drug therapy
CPT/HCPCS: 36415; 70450; 71045; 80048; 80307; 84484; 85025; 96360; 99285; J7030; 80305; G0480